=== PATIENT | male | born 2000 | race Two or more races ===

== ENCOUNTER 2022-04-30 11:12 | Emergency (ER) | payer MEDICAID ==
[~2022-04-30] VITALS: Ht 170.2 cm; Wt 100.0 kg
[2022-04-30 14:00] VITALS: BP 130/86
[2022-04-30] MEDS ORDERED: ceFAZolin 1GM/50ML 100 ML IV ONE (14:15)
[2022-04-30] MEDS ORDERED: TETANUS-DIPTH-ACEL PERTUSSIS 0.5ML SYR Tdap IM ONE (14:15)
[2022-04-30] MEDS ORDERED: LIDOCAINE 1% HCL (LOCAL ANESTH.) INJ 20ML MDV ONE (14:38)
[2022-04-30] MEDS ORDERED: LIDOCAINE 1% HCL (LOCAL ANESTH.) INJ 20ML MDV ID ONE (14:45)
[2022-04-30] MEDS ORDERED: IBUP800T27 PO (15:26)
[2022-04-30] MEDS ORDERED: CEPH-510 PO (15:26)
[2022-04-30] MEDS ORDERED: BACIOIN15 OP (15:26)
[2022-04-30] MEDS ORDERED: CLIN300C8 PO (15:26)
== END 2022-04-30 16:46 | disposition home or self-care (01) ==
LOC: ER 11:12
DX: S62.624A Displaced fracture of middle phalanx of right ring finger, initial encounter for closed fracture (principal); S61.215A Laceration without foreign body of left ring finger without damage to nail, initial encounter; Z79.1 Long term (current) use of non-steroidal anti-inflammatories (NSAID); Z79.2 Long term (current) use of antibiotics; Z79.899 Other long term (current) drug therapy; W26.8XXA Contact with other sharp object(s), not elsewhere classified, initial encounter; Y93.89 Activity, other specified; Y92.89 Other specified places as the place of occurrence of the external cause; Y99.8 Other external cause status
CPT/HCPCS: 12002; 29130; 73140; 90471; 90715; 96365; 99284; J0690; J2001